=== PATIENT | male | born 1945 | race Caucasian/White ===

== ENCOUNTER 2018-02-05 07:15 | Inpatient (IN) | payer OTHER, MEDICARE ==
[2018-02-05] MEDS ORDERED: ceFAZolin 2 GM/DEXTROSE 100 ML IV ONE (07:56)
[2018-02-05] MEDS ORDERED: GABAPENTIN 300 MG CAP PO ONE (07:56)
[2018-02-05] MEDS ORDERED: ACETAMINOPHEN 500 MG TAB PO ONE (07:56)
[2018-02-05] MEDS ORDERED: LR 1,000 ML IV ONE (07:59)
[2018-02-05] MEDS ORDERED: DEXMEDETOMIDINE HCL 400 MCG in NS 100 ML IV ONE (08:00)
[2018-02-05] MEDS ORDERED: CHLORHEXIDINE GLUC HIBICLENS 118 ML BTL TP ONE (08:12)
[2018-02-05] MEDS ORDERED: SURGIFLO MATRIX KIT WITH THROMBIN 8 ML TP ONE (08:12)
[2018-02-05] MEDS ORDERED: THROMBIN (BOVINE) 20,000 UNIT VIAL TP ONE (08:12)
[2018-02-05] MEDS ORDERED: BUPIVACAINE 0.25% 30 ML SDV ONE (08:13)
[2018-02-05] MEDS ORDERED: BACITRACIN 50,000 UNITS/10 ML SYR IRR ONE (08:14)
[2018-02-05] MEDS ORDERED: EPINEPHrine 1 MG/ML INJ ONE (08:14)
--- NOTE | 2018-02-05 09:14 | PDHPUP ---
History & Physical Update H&P update statement: This history and physical update is based on an assessment of the patient which was completed after admission or registration (within 24 hours), but prior to the surgery/procedure. H&P update: H&P reviewed & patient examined, no change in patient's condition since H&P completed (All questions answered and sited marked. Consents signed.)
[2018-02-05] MEDS ORDERED: MIDAZOLAM 2 MG/2 ML VIAL ONE (09:45)
[2018-02-05] MEDS ORDERED: fentaNYL 100 MCG/2 ML INJ ONE ×2 (09:46→11:16)
[2018-02-05] MEDS ORDERED: PROPOFOL/EMULSION 500 MG/50 ML BOTTLE IV ONE ×3 (09:46→13:24)
[2018-02-05] MEDS ORDERED: DIAZEPAM 5 MG/ML 1 ML SYR ONE ×2 (10:02→16:27)
--- NOTE | 2018-02-05 10:24 | PDANEPAE ---
ANE Past Medical History - Cardiovascular History Hx Hypertension: Yes Hx Arrhythmias: No Hx Chest Pain: No Hx Coronary Artery / Peripheral Vascular Disease: No Hx CHF / Valvular Disease: No Hx Palpitations: No Cardiovascular History Comment: BP WELL CONTROLLED - Pulmonary History Hx COPD: No Hx Asthma/Reactive Airway Disease: No Hx Recent Upper Respiratory Infection: No Hx Oxygen in Use at Home: No Hx Sleep Apnea: No Sleep Apnea Screening Result - Last Documented: Negative Pulmonary History Comment: SEASONAL ALLERGIES - Neurologic History Hx Cerebrovascular Accident: No Hx Seizures: No Hx Dementia: No - Endocrine History Hx Diabetes: No Endocrine History Comment: BORDERLINE GLUCOSE - Renal History Hx Renal Disorders: No Renal History Comment: KIDNEYS. 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 MENISCUS TEAR SCOPE. DEVIATED SEPTUM. KIDNEY STONE ANE Review of Systems Review of Systems: - Exercise capacity METS (RN): 5 METS ANE Patient History - Allergies Allergies/Adverse Reactions: No Known Allergies Allergy (Unverified 12/30/17 10:27) - Home Medications Home Medications: Brimonidine 0.2% [ALPHAGAN 0.2% (RX)] 1 drops EACHEYE TID 12/30/17 [Last Taken 02/05/18] Fesoterodine Fumarate [Toviaz (*)] 4 mg PO DAILY 12/30/17 [Last Taken 02/05/18] Finasteride [Proscar 5 MG (*)] 5 mg PO HS 12/30/17 [Last Taken 02/04/18] Fluticasone Nasal [Flonase Nasal [place] (RX)] 1 sprays NASAL BID 12/30/17 [Last Taken 02/05/18] Herbals/Supplements -Info Only 1 ea PO DAILY 12/30/17 [Last Taken 01/29/18] Hyoscyamine Sulfate [Levsin, Hyomax-Sl 0.125 mg (*)] 0.125 mg PO DAILY PRN 12/30 [Last Taken 01/06/18] Losartan Potassium [Cozaar 50 mg (*)] 50 mg PO DAILY 12/30/17 [Last Taken ] - NPO status NPO Since - Liquids (Date): 02/05/18 NPO Since - Liquids (Time): 02:00 NPO Since - Solids (Date): 02/04/18 NPO Since - Solids (Time): 21:00 - Smoking Hx Smoking Status: Never smoked - Family Anes Hx Family Hx Anesthesia Complications: NEG ANE Labs/Vital Signs - Vital Signs Blood Pressure: 150/85 Heart Rate: 77 Respiratory Rate: 16 O2 Sat (%): 99 Height: 170.18 cm Weight: 80.739 kg ANE Physical Exam - Airway Neck exam: FROM Mallampati Score: Class 2 Mouth exam: normal dental/mouth exam - Pulmonary Pulmonary: no respiratory distress, no rales or rhonchi, clear to auscultation - Cardiovascular Cardiovascular: regular rate and rhythym, no murmur, rub, or gallop - ASA Status ASA Status: III ANE Anesthesia Plan Anesthesia Plan: general endotracheal anesthesia Lines/Monitors: arterial line, additional IV Total IV Anesthesia: Yes
[2018-02-05] MEDS ORDERED: ONDANSETRON 4 MG/2 ML VIAL ONE (10:51)
[2018-02-05] MEDS ORDERED: RANITIDINE 50 MG/2 ML VIAL ONE (10:51)
[2018-02-05] MEDS ORDERED: METOCLOPRAMIDE 10 MG/2 ML VIAL ONE (10:51)
[2018-02-05] MEDS ORDERED: ceFAZolin 1 GM VIAL ONE (10:51)
[2018-02-05] MEDS ORDERED: DEXAMETHASONE 4 MG/ML VIAL ONE (10:51)
[2018-02-05] MEDS ORDERED: ROCURONIUM 50 MG/5 ML VIAL ONE (10:51)
[2018-02-05] MEDS ORDERED: ePHEDrine SULFATE 25 MG/5 ML SYR ONE ×2 (11:24→13:51)
[2018-02-05] MEDS ORDERED: ALBUMIN 5% 250 ML BOTTLE IV ONE (12:14)
[2018-02-05] MEDS ORDERED: BACITRACIN ZINC 14.2 GM OINTTUBE TP ONE (13:14)
[2018-02-05] MEDS ORDERED: DIAZEPAM 5 MG/ML 1 ML SYR IVP PRN (14:07)
[2018-02-05] MEDS ORDERED: LR 500 ML IV PRN (14:07)
[2018-02-05] MEDS ORDERED: DEXAMETHASONE 4 MG/ML VIAL IVP PRN (14:07)
[2018-02-05] MEDS ORDERED: ALBUTEROL 3 ML DEYVIAL IH PRN (14:07)
[2018-02-05] MEDS ORDERED: NALOXONE HCL 0.4 MG/ML INJ IVP PRN (14:07)
[2018-02-05] MEDS ORDERED: fentaNYL 100 MCG/2 ML INJ IVP PRN (14:07)
[2018-02-05] MEDS ORDERED: ONDANSETRON 4 MG/2 ML VIAL IVP PRN ×2 (14:07→14:12)
[2018-02-05] MEDS ORDERED: diphenhydrAMINE 25 MG CAP PO PRN (14:12)
[2018-02-05] MEDS ORDERED: BISACODYL 10 MG SUPP PR PRN (14:12)
[2018-02-05] MEDS ORDERED: ONDANSETRON DISINTEGRATING 4 MG TAB PO PRN (14:12)
[2018-02-05] MEDS ORDERED: LACTULOSE 20 GM/30 ML UDCUP PO PRN (14:12)
[2018-02-05] MEDS ORDERED: HYOSCYAMINE SULFATE 0.125 MG TAB PO PRN (14:12)
[2018-02-05] MEDS ORDERED: POLYETHYLENE GLYCOL 3350 17 GM PKT PO PRN (14:12)
[2018-02-05] MEDS ORDERED: NS 1,000 ML IV SCH (14:15)
--- NOTE | 2018-02-05 14:18 | POSTOPPROG ---
Post Op Note Date of Operation: 02/06/18 Surgeon: Israel Huntley [employer] Controls Expert: DANGELO Puri PAC Anesthesia: Epidural Pre-op Diagnosis: Cervical stenosis Post-op Diagnosis: Cervical stenosis Indication: Cervical stenosis Procedure: ACDF C3-7, laminectomy C3-7 with C3-T1 PSF Inf/Abcess present in the surg proc area at time of surgery?: No Drains: John PADILLA Addendum - Addendum .: S: Resting comfortably. Denies any new pain O: NAD A&Ox3 MAEx4 5/5 and equal in BUE and BLE. Dressings c/d/i. SHERITA drains serosanguineous A/p 72y/o s/p ACDF C3-7, laminectomy C3-7 with C3-T1 PSF Advance diet as tolerated PT/OT SHERITA drain x2 Post op xrays pending Hard collar at all tiems otehr than shower DVT prophx: TEDs, SCDs, Lovenox okay POD3 Please notify NS with any change in neuro/motor exam
--- NOTE | 2018-02-05 14:35 | PDMN ---
Medical Necessity Medical necessity: Pt meets IP criteria per PA & MCG S-320; est los >2 mn s/p C3 -7 ACDF, C3-7 laminectomy with C3-T1 PSF POD #0; per Post-Op report & order 02/05
[2018-02-05] MEDS ORDERED: PROPOFOL 200 MG/20 ML VIAL ONE (15:12)
--- NOTE | 2018-02-05 17:53 | GOP ---
DATE OF OPERATION: 02/05/2018 SURGEON: Israel Huntley MD HAT PARTS CUTTER MACHINE: Mariam Puri PA-C. ANESTHESIA: General. PREOPERATIVE DIAGNOSIS: 1. Cervical spondylosis with stenosis C3 through C7. 2. Cervicalgia. 3. Radiculopathy. 4. Myelopathy. 5. Treatment refractory to nonoperative intervention. POSTOPERATIVE DIAGNOSIS: 1. Cervical spondylosis with stenosis C3 through C7. 2. Cervicalgia. 3. Radiculopathy. 4. Myelopathy. 5. Treatment refractory to nonoperative intervention. PROCEDURE PERFORMED: Stage 1: 1. Anterior arthrodesis with approach to C3, C4, C5, C6, and C7. 2. C3-C4 diskectomy with bilateral foraminotomies, osteophytectomies, and interbody fusion using a 7 mm titanium-coated PEEK cage filled with morselized autograft and allograft. 3. C4-C5 diskectomy with bilateral foraminotomies, osteophytectomies, and interbody fusion using a 7 mm titanium-coated PEEK cage filled with morselized autograft and allograft. 4. Anterior cervical fusion C3, C4, and C5 with a 37.5 mm Medtronic [place] Translational plate. 5. C5-C6 diskectomy with bilateral foraminotomies, osteophytectomies, and interbody fusion using a 6 mm titanium-coated PEEK cage filled with morselized autograft and allograft. 6. C6-C7 diskectomy with bilateral foraminotomies, osteophytectomies, and interbody fusion using a 6 mm titanium-coated PEEK cage filled with morselized autograft and allograft. 7. Anterior cervical fusion C5, C6, and C7 with a 37.5 mm Medtronic [place] Translational plate. 8. Use of intraoperative fluoroscopy, less than 1 hour physician time. 9. Use of neuro monitoring. 10. Use of the operating microscope. Stage 2: 1. Posterior arthrodesis with approach to C3, C4, C5, C6, C7, and T1. 2. Decompressive laminectomy with bilateral medial facetectomies, C3, C4, C5, C6, and C7. 3. Posterolateral fusion with bilateral lateral mass screw placement at C3, C4 , C5, C6 and bilateral pedicle screw placement at T1 from the [employer] Infinity System. 4. Posterolateral fusion bilaterally between C3 and T1 with morselized autograft and allograft. 5. Use of intraoperative 3D Stealth navigation. 6. Use of intraoperative fluoroscopy, this was less 1 hour physician time. 7. Use neuromonitoring. FINDINGS: per imaging SPECIMENS: None. ESTIMATED BLOOD LOSS: 200 mL. INDICATIONS: The patient is a very pleasant gentleman who presented to my office with worsening neck pain, radiculopathy, and had evidence of some weakness on examination. He had evidence of severe spinal stenosis C3 through C7. After discussion of the risks, benefits, and treatment alternatives, after failing nonoperative intervention, we decided to proceed forth with surgery as described above. DESCRIPTION OF PROCEDURE: Patient was brought to the operating theater and underwent general endotracheal anesthesia without complications. He had Venodynes, LANDRY hose, and the appropriate lines placed by Anesthesia. He was maintained supine on the operating table with his head in slight extension. All bony prominences were inspected and padded. This was stage 1 of the surgery. Using lateral fluoroscopy and 2 spinal needles were picked our entry point to the C3 through C5 and C5 through C7 levels. This was marked as 2 transverse incisions on the right side of his neck. These areas were then prepped and draped in the usual sterile surgical fashion. A time-out was completed per protocol and the patient received antibiotics within 1 hour of incision. Both incisions were taken down with the scalpel blade, and using the monopolar taken down through subcutaneous tissues to the level of the platysma. The platysma was over-mined in the cranial and caudal directions. We opened up the platysma cranially and caudally. Using both blunt and sharp dissection, we then traveled in a plane medial to the carotid sheath and laterally to the esophagus and trachea to reach the prevertebral fascia. We placed a bayonetted needle into disk space of C4-C5 and C6-C7. We confirmed our levels using lateral fluoroscopy. We elevated the longus coli muscle from the anterior vertebral bodies of C3, C4, and C5 in the upper incision and C5, C6 and C7 from the inferior incision. At this point, we moved up to the C3 and C5 incision and brought the microscope into the field to assist with microscopic dissection and to maintain illumination and magnification. We placed deep retractors to maintain our exposure. We placed [place] pins into the vertebral body of C3 and C4 and placed C3-C4 into mild distraction. We completed a C3-C4 diskectomy with bilateral foraminotomies and osteophytectomies. We prepared the cartilaginous endplates and measured the interbody space. We placed a 7 mm Titanium-coated PEEK cage filled with morselized autograft and allograft into the C3-C4 disk space. We removed the [place] pin from C3, placed it in the C5, and placed C4- C5 into mild distraction. We completed a C4-C5 diskectomy with bilateral foraminotomies and osteophytectomies. We prepared the cartilaginous endplates and measured the interbody space. We then placed a 7 mm titanium-coated PEEK cage filled with morselized autograft and allograft into the C4-C5 disk space. We removed the [place] pins, drilled down the anterior osteophytes and secured a 37.5 mm Medtronic [place] Translational plate onto the vertebral bodies of C3, C4, and C5. Lateral x-ray confirmed our position. We then moved down to the C5 to C7 incision where we placed deep retractors and then placed [place] pins into C5 and C6 and placed C5-C6 into mild distraction. We completed a C5-C6 diskectomy with bilateral foraminotomies and osteophytectomies. We prepared the cartilaginous endplates and measured the interbody space. We placed a 6 mm titanium-coated PEEK cage filled with morselized autograft and allograft into the C5-C6 disk space. We removed the [place] pin from C5, placed it into C7 and placed C6-C7 into mild distraction. We completed a C6-C7 diskectomy with bilateral foraminotomies and osteophytectomies. We prepared the cartilaginous endplates and measured interbody space. We placed a 6 mm titanium-coated PEEK cage filled with morselized autograft and allograft into the C6-C7 disk space. We removed the [place] pins and drilled down the anterior osteophytes and secured a 37.5 mm Medtronic [place] Translational plate onto the vertebral bodies of C5, C6, and C7. AP and lateral x-rays demonstrated good placement of the hardware. We irrigated both wounds copiously with bacitracin irrigation. We left a drain in subfascial space and closed both wounds in multiple layers using Vicryl sutures in deep layers and Dermabond for the skin. The patient's wounds were dressed sterilely. The neuromonitoring at this point was stable with no changes. This was completion of stage 2 of a 2 planned stage procedure. At this point, the patient's head was placed in Gilbert assistant head cashier device. The patient was then flipped prone onto the John table and placed in a tuck position. He was affixed to the table in this position. All bony prominences were inspected and padded. A midline incision over the occipital cervical area was prepped and draped in the usual sterile surgical fashion. The patient was redosed with antibiotics accordingly from the time of the start of surgery. We localized our incision using lateral fluoroscopy and spinal needle. We marked the incision in the midline and infiltrated the incision with Marcaine with epinephrine. The incision was taken down the midline with a scalpel blade. Using monopolar, the incision was then taken down through the avascular midline nuchal plane and subperiosteal dissection carried to the edges of the lateral masses of C3, C4, C5, C6, C7, and T1. Deep retractors were placed to maintain our exposure. We used the robert tip on the drill bit to place a trough at the junction of the lateral mass and lamina bilaterally at C3, C4, C5, C6, and C7. Using the [place] punches, we then lobster-tail completed a decompressive laminectomy from C3 through 7 and passed the bone off the field. We used a robert tip on the drill bit to place the rotor pilot holes for the bilateral lateral mass screws C3, C4, C5 and C6. All holes were drilled to 12 mm. We tapped and placed 12 mm lateral screws into C3, C4, C5, C6 bilaterally from the Medtronic Infinity System. We attached the 3D Stealth navigation clamp to the spinous process of T1 and completed a 3D Stealth navigation spin. Using 3D navigation we placed the rotor pilot holes for the bilateral pedicle screws into T1. Both holes were manually palpated with no evidence of any cortical breaches. We then tapped and placed 3.5 x 24 mm screws bilaterally into T1 from the Medtronic Infinity system. Another 3D Stealth navigation spin demonstrated good placement of the hardware. We decorticated the bone bilaterally between C3 and T1. The wound was irrigated copiously with bacitracin irrigation. We placed 2 lordotic rods into the heads of the screws between C3 and T1 and secured them down with cap screws which were then tightened per the carcass trimmer's setting. We placed morselized autograft and allograft bilaterally between C3 and T1 for the posterolateral fusion. A drain was left in the subfascial space and the wound then closed in multiple layers using Vicryl sutures for the deep layers and Dermabond for the skin. The patient's wounds were dressed sterilely. He was awakened, extubated , and taken to recovery room in stable condition. There were no complications and no noted changes on neuromonitoring throughout the procedure. COMPLICATIONS: None. /[id number]/MODL MTDD
[2018-02-05] MEDS: DEXAMETHASONE 4 MG/ML VIAL IVP SCH (18:20)
[2018-02-05] MEDS: DIAZEPAM 5 MG TAB PO PRN (18:28)
[2018-02-05] MEDS: ceFAZolin 2 GM/DEXTROSE 100 ML IV SCH (18:29)
--- NOTE | 2018-02-05 19:38 | POSTANESTH ---
Post Anesthetic Evaluation Cardiovascular Status: Normal, Stable, Similar to Pre-Op Cond Respiratory Status: Normal, Stable, Similar to Pre-op Cond. Level of Consciousness/Mental Status: Moderately Sleepy Pain Control: Adequate, Prn Tx Ordered Nausea/Vomiting Control: Adequate, Prn Tx Ordered Complications Possibly Related to Anesthesia: None Noted
[2018-02-05] MEDS: SENNOSIDES/DOCUSATE SODIUM TAB PO SCH (20:07)
[2018-02-05] MEDS: FINASTERIDE 5 MG TAB PO SCH (20:07)
[2018-02-05] MEDS: BRIMONIDINE 0.2% 5 ML OPHT.BTL EACHEYE SCH ×2 (20:39→23:18)
[2018-02-05] MEDS: FLUTICASONE NASAL 120 SPRAYS/16 GM MDI EACHNARE SCH (21:43)
[2018-02-05] MEDS: ACETAMINOPHEN 500 MG TAB PO SCH (23:17)
[2018-02-06] MEDS: DEXAMETHASONE 4 MG/ML VIAL IVP SCH (00:54)
[2018-02-06] MEDS: ceFAZolin 2 GM/DEXTROSE 100 ML IV SCH (01:34)
[2018-02-06] MEDS: ACETAMINOPHEN 500 MG TAB PO SCH ×3 (07:18→20:52)
[2018-02-06] MEDS: FESOTERODINE FUMARATE 4 MG TAB.ER PO SCH (08:32)
[2018-02-06] MEDS: LOSARTAN POTASSIUM 50 MG TAB PO SCH (08:32)
[2018-02-06] MEDS: SENNOSIDES/DOCUSATE SODIUM TAB PO SCH ×2 (08:32→20:52)
[2018-02-06] MEDS: BRIMONIDINE 0.2% 5 ML OPHT.BTL EACHEYE SCH ×2 (08:35→15:38)
[2018-02-06] MEDS: FLUTICASONE NASAL 120 SPRAYS/16 GM MDI EACHNARE SCH (08:35)
--- NOTE | 2018-02-06 08:51 | SOAPPROG ---
SOAP Progress Note Assessment/Plan: Assessment: 72 yo male POD #1sp C3-7 ACDF and C3-T1 posterior fusion doing well pain controlled no noticeable improvement in symptoms thus far ok for floor Plan: transfer to floor continue SHERITA drains x 2 Cervical xrays this AM 02/06/18 08:48 Subjective: sitting in bedside chair, complains that his collar makes him feel claustrophobic Denies new numbness tingling or weakness Objective: Vital Signs Temp Pulse Resp BP Pulse Ox 35.8 C L 68 17 136/73 H 100 02/05/18 18:22 02/06/18 04:00 02/06/18 04:00 02/06/18 08:32 02/06/18 04:00 Laboratory Results 02/05/18 12:34 02/05/18 12:34 02/05/18 02/06/18 02/07/18 05:59 05:59 05:59 Intake Total 2446 Output Total 1460 390 Balance 986 -390 Ant SHERITA 120 Post SHERITA 90 Dressings x [address] Neuro: Witt, sens +LT throughout ambulatory orineted x 4 follows commands ICD10 Worksheet Patient Problems: Problems Problem Status Onset Cervical stenosis of spinal canal Acute - ICD10 Problem Qualifiers (1) Cervical stenosis of spinal canal
[2018-02-06] MEDS: oxyCODONE IR 5 MG TAB PO PRN ×2 (09:49→19:23)
--- NOTE | 2018-02-06 10:00 | ASMTCASEMG ---
Living Arrangements What is your living Answers: With Spouse arrangement? Who do you live with? Type Of Residence What kind of residence do Answers: House you live in? Discharge Plan Comments Coordination Status Comments Notes: Patient is a 72yo male who was admitted for C3/4/5 cervical fusion anterior and C5/6/7 ACDF. OT/PT/RETAIL ATTENDANT have beend ordered. D/C plan TBD. CM will follow. Date Signed: 02/06/2018 09:59 AM Electronically Signed By:Syeda Baker LCSW
[2018-02-06] MEDS: MAGNESIUM HYDROXIDE 30 ML UDCUP PO PRN (17:06)
[2018-02-06] MEDS: DIAZEPAM 5 MG TAB PO PRN (18:15)
[2018-02-06] MEDS: FINASTERIDE 5 MG TAB PO SCH (20:52)
[2018-02-07] MEDS: BRIMONIDINE 0.2% 5 ML OPHT.BTL EACHEYE SCH ×4 (01:45→20:52)
[2018-02-07] MEDS: FLUTICASONE NASAL 120 SPRAYS/16 GM MDI EACHNARE SCH ×3 (02:03→20:52)
[2018-02-07] MEDS: oxyCODONE IR 5 MG TAB PO PRN ×4 (02:10→17:48)
[2018-02-07] MEDS: DIAZEPAM 5 MG TAB PO PRN ×2 (02:11→15:51)
[2018-02-07] MEDS: ACETAMINOPHEN 500 MG TAB PO SCH ×3 (06:21→23:00)
--- NOTE | 2018-02-07 06:33 | NEUSURGPN ---
Date of Surgery: 02/05/18 Post Op Day: 2 Assessment/Plan: 72 yo male POD #2 sp C3-7 ACDF and C3-T1 posterior fusion. XRays with stable hardware pain control, transition to orals only PT/OT Remove Anterior drain this am, likely remove posterior tomorrow Hard collar DVTppx LANDRY's, SCDs, Lovenox OK dipso planning Subjective: Doing well. significant post op pain but otherwise no issues. currently 11/02. wondering about instructions for going home and if he is ready to go today. Objective: NAD AAOx4 VSS speech clear, no facial droop MAEx4, 5/5= SILT incisions CDI, dressed JPx2 Hard collar Urinary Catheter in Place: No Catheter Insertion Date: 02/05/18 - Physician Discussed Patient with : Audi Neurosurgery Physical Exam - Vitals, I&O, Labs I and O 02/06/18 02/07/18 02/08/18 05:59 05:59 05:59 Intake Total 2446 1508 Output Total 1460 657 Balance 986 851 Weight 80.739 kg Intake: Oral (ml) 0 550 IV Intake (ml) 1200 IV Infused (ml) 1246 958 Ns 1,000 ml @ 75 mls/hr 1146 858 IV CONT KAITLYNN Rx#: [id number] ceFAZolin 2 GM/DEXTROSE 100 100 ml @ 200 mls/hr IV ONCALL ONE Rx#:[id number] ceFAZolin 2 GM/DEXTROSE 100 100 ml @ 200 mls/hr IV Q8H KAITLYNN Rx#:[id number] Output: Urine (ml) 850 402 Catheter 850 300 Toilet 102 Urine/Stool Mix (ml) 0 Toilet 0 Estimated Blood Loss (ml) 300 Emesis (ml) 0 SHERITA Drain Output (ml) 310 255 Anterior Neck John 120 45 Edward Posterior Neck John 190 210 Edward Other: Number of Voids Toilet 2 Number of Stools Catheter 0 Vital Signs Temp Pulse Resp BP Pulse Ox 36.9 C 78 16 132/78 H 95 02/07/18 04:00 02/07/18 04:00 02/07/18 04:00 02/07/18 04:00 02/07/18 04:00 Laboratory Results 02/05/18 12:34 02/05/18 12:34 ICD10 Worksheet Patient Problems: Problems Problem Status Onset Cervical stenosis of spinal canal Acute
[2018-02-07] MEDS: LOSARTAN POTASSIUM 50 MG TAB PO SCH (08:46)
[2018-02-07] MEDS: SENNOSIDES/DOCUSATE SODIUM TAB PO SCH ×2 (08:46→20:51)
[2018-02-07] MEDS: FESOTERODINE FUMARATE 4 MG TAB.ER PO SCH (10:47)
[2018-02-07] MEDS: FINASTERIDE 5 MG TAB PO SCH (20:51)
[2018-02-08] MEDS: DIAZEPAM 5 MG TAB PO PRN (01:12)
[2018-02-08] MEDS: oxyCODONE IR 5 MG TAB PO PRN ×3 (01:15→11:29)
[2018-02-08] MEDS: ACETAMINOPHEN 500 MG TAB PO SCH (06:28)
[2018-02-08] MEDS: MAGNESIUM HYDROXIDE 30 ML UDCUP PO PRN (06:36)
[2018-02-08 07:55] VITALS: BP 134/84
[2018-02-08] MEDS: SENNOSIDES/DOCUSATE SODIUM TAB PO SCH (08:12)
[2018-02-08] MEDS: FESOTERODINE FUMARATE 4 MG TAB.ER PO SCH (08:12)
[2018-02-08] MEDS: LOSARTAN POTASSIUM 50 MG TAB PO SCH (08:12)
[2018-02-08] MEDS: FLUTICASONE NASAL 120 SPRAYS/16 GM MDI EACHNARE SCH (08:17)
[2018-02-08] MEDS: BRIMONIDINE 0.2% 5 ML OPHT.BTL EACHEYE SCH (08:18)
[2018-02-08] MEDS ORDERED: ENOXAPARIN 40 MG/0.4 ML SYR SC SCH (09:00)
--- NOTE | 2018-02-08 10:46 | NEUSURGPN ---
Assessment/Plan: 72 yo male POD #3 sp C3-7 ACDF and C3-T1 posterior fusion. XRays with stable hardware pain control, doing well on current regimen PT/OT- have cleared for DC Remove posterior drain, change dressing prior to dc Hard collar DVTppx LANDRY's, SCDs, Lovenox OK Home later today dw Dr. Huntley Subjective: doing well. Pain controlled. ready to go home he thinks. Objective: NAD AAOx4 VSS speech clear, no facial droop MAEx4, 5/5= SILT incisions CDI, dressed JPx1. Hard collar Urinary Catheter in Place: No Catheter Insertion Date: 02/05/18 - Physician Discussed Patient with : Audi Neurosurgery Physical Exam - Vitals, I&O, Labs I and O 02/07/18 02/08/18 02/09/18 05:59 05:59 05:59 Intake Total 1508 Output Total 657 130 Balance 851 -130 Intake: Oral (ml) 550 IV Infused (ml) 958 Ns 1,000 ml @ 75 mls/hr 858 IV CONT KAITLYNN Rx#: [id number] ceFAZolin 2 GM/DEXTROSE 100 100 ml @ 200 mls/hr IV Q8H KAITLYNN Rx#:[id number] Output: Urine (ml) 402 Catheter 300 Toilet 102 Urine/Stool Mix (ml) 0 Toilet 0 SHERITA Drain Output (ml) 255 130 Anterior Neck John 45 10 Edward Posterior Neck John 210 120 Edward Other: Intake Quantity Yes Sufficient Number of Voids Toilet 2 2 Vital Signs Temp Pulse Resp BP Pulse Ox 36.7 C 84 14 134/84 H 99 02/08/18 07:55 02/08/18 07:55 02/08/18 07:55 02/08/18 08:12 02/08/18 07:55 Laboratory Results 02/05/18 12:34 02/05/18 12:34 ICD10 Worksheet Patient Problems: Problems Problem Status Onset Cervical stenosis of spinal canal Acute
--- NOTE | 2018-02-08 11:33 | ASDISCHSUM ---
Discharge Information Plan Status:Home with No Needs Medically Cleared to Leave:02/08/2018 Discharge Date:02/08/2018 CM D/C Disposition:Home, Routine, Self-Care ADT D/C Disposition:Home, Routine, Self-Care Projected Discharge Date:02/08/2018 Transportation at D/C:Family Discharge Delay Reason: Follow-Up Date:02/08/2018 Discharge Slot: Final Diagnosis: Placement Information Patient Contact Information Contact Name:JESSIKA Relationship: Address:[address] Work Phone: City:[place] Alternate Phone: [facility] Code:[place] [address] Email: Financial Information Financial Class:Medicare Primary Plan Desc:MEDICARE INPATIENT Primary Plan Number:[id number] Secondary Plan Desc:SAVAGE/DIGNA SUPPLEMENT Secondary Plan Number:[id number] Assessment Information LACE LACE Length of stay for Answers: 3 days current admission Acuity / Level of Answers: Yes Care: Did the patient have an inpatient admission? Comorbidities - select Answers: Opioid dependence all that apply / Chronic pain Other Notes: HTN # of Emergency department Answers: 0 visits in the last 6 months Social determinants Answers: Mental health diagnosis (anxiety, depression, pers onality disorders, etc.) Score: 14 Date Signed: 02/08/2018 11:31 AM Electronically Signed By:KERRI Mora [facility] Initial CM Assessment Living Arrangements What is your living Answers: With Spouse arrangement? Who do you live with? Type Of Residence What kind of residence do Answers: House you live in? Discharge Plan Comments Coordination Status Comments Notes: Patient is a 72yo male who was admitted for C3/4/5 cervical fusion anterior and C5/6/7 ACDF. OT/PT/STITCHING MACHINE SETTER have beend ordered. D/C plan TBD. CM will follow. Date Signed: 02/06/2018 09:59 AM Electronically Signed By:Syeda Baker LCSW Case Management Discharge Plan Note Case Management Discharge Discharge Order Complete? Answers: Yes Patient to Obtain Answers: via Family Medications Transportation Arranged Answers: Family/Friends Discharge Comments Notes: Pt is discharging home today with his and no CM needs. IM explained and signed by pt. Copy to pt and in chart. Date Signed: 02/08/2018 11:32 AM Electronically Signed By:KERRI Mora Intervention Information
== END 2018-02-08 13:14 | disposition home or self-care (01) | DRG 455 ==
LOC: F3N 07:40 → F2N 18:04 → F3N 02-07 01:49
PROVIDERS: ADMIT Neurological Surgery; ATTEND Neurological Surgery
DX: M47.12 Other spondylosis with myelopathy, cervical region (principal); M50.10 Cervical disc disorder with radiculopathy, unspecified cervical region; I10 Essential (primary) hypertension
CPT/HCPCS: 82947-QW; 92526-GN; 92610-GN; 97116-GP; 97161-GP; 97165-GO; 97530-GP; 97535-GO; C1713; G8978-GP-CJ; G8979-GP-CI; G8980-GP-CI; G8987-GO-CJ; G8988-GO-CI; G8996-GN-CI; G8997-GN-CI; J0171; J0690; J1100; J1650; J2250; J2270; J2405; J2704; J2765; J2780; J3010; J3360; P9041